=== PATIENT | male | born 1975 | race African-American/Black ===

== ENCOUNTER 2016-10-13 19:56 | Inpatient (IN) ==
[2016-10-13] MEDS ORDERED: PANTOPRAZOLE 40 MG VIAL IV STA (21:08)
[2016-10-13] MEDS ORDERED: SODIUM CHLORIDE 0.9% 1,000 ML IV STA (21:08)
[2016-10-13] MEDS ORDERED: ONDANSETRON 4 MG/2 ML VIAL IV STA (21:08)
[2016-10-13] MEDS ORDERED: HYDROmorphone 2 MG/1 ML VIAL IV STA ×2 (21:08→23:31)
[2016-10-13] MEDS ORDERED: ALUM/MAG/SIMETH/LIDO VISC 1:1 30 ML BOTTLE PO STA (21:08)
[2016-10-13] MEDS ORDERED: hydrALAZINE 20 MG/1 ML VIAL IV STA (21:10)
[2016-10-13 21:27] LABS: Basophils % 0.3 % (0.0-0.8); Eosinophils % 0.1 % (0.00-10.9); Hematocrit 39.1 VOL% (42.0-52.0); Hemoglobin 14.6 GM/DL (14.0-18.0); Immature Granulocytes % 0.2 %; Immature Granulocytes Absolute 0.02 #; Lymphocytes # 1.5 10*3/uL (1.4-4.0); Lymphocytes % 17.3 % (21.2-54.2); Mean Corpuscular HGB Conc 37.3 GM/DL (32-36); Mean Corpuscular Hemoglobin 38 PG (27-34); Mean Corpuscular Volume 101.6 FL (87-102); Monocytes # 0.6 10*3/uL (0.11-0.8); Neutrophils # 6.7 10*3/uL (1.4-7.4); Neutrophils % 75.1 % (38.7-73.9); Platelet Count 233 T/CUMM (130-400); Red Blood Count 3.85 MC/CUMM (3.8-5.5); White Blood Count 8.9 T/CUMM (4-12)
[2016-10-13] MEDS ORDERED: ONDANSETRON 4 MG/2 ML VIAL ONE (21:28)
[2016-10-13] MEDS ORDERED: ALUM/MAG/SIMETH/LIDO VISC 1:1 30 ML BOTTLE PO ONE (21:28)
[2016-10-13] MEDS ORDERED: hydrALAZINE 20 MG/1 ML VIAL ONE (21:28)
[2016-10-13] MEDS ORDERED: PANTOPRAZOLE 40 MG VIAL IV ONE (21:28)
[2016-10-13] MEDS ORDERED: HYDROmorphone 2 MG/1 ML VIAL ONE (21:28)
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
[2016-10-13 21:59] LABS: Alanine Aminotransferase 28 U/L (16-61); Albumin 4.1 G/DL (3.4-5.0); Alkaline Phosphatase 92 U/L (45-117); Amylase 738 U/L (25-115); Aspartate Amino Transferase 20 U/L (0-37); Blood Urea Nitrogen 8 MG/DL (7-18); Calcium 9.7 MG/DL (8.5-10.1); Glucose 92 MG/DL (74-106); Magnesium 1.7 MG/DL (1.8-2.4); Osmolality,Calculated 274.5 MOS/KG (273-304); Potassium 3.6 MMOL/L (3.5-5.1); Sodium 139 MMOL/L (136-145); Troponin I Only 0.035 NG/ML (0.00-0.045)
[2016-10-13] MEDS ORDERED: MAGNESIUM SULF RIDER 2 GM in PREMIX 1 EACH IV STA (22:13)
[2016-10-13] MEDS ORDERED: MAGNESIUM SULF RIDER 50 ML IV ONE (22:28)
[2016-10-13 22:46] LABS: Apearance,Urine CLEAR (Clear); Bilirubin,Urine Negative (Negative); Blood, Urine Negative (Negative); Glucose,Urine (UA) Negative (Negative); Ketones,Urine Negative (Negative); Nitrite,Urine Negative (Negative); Protein,Urine Negative; RBC,Urine <1 /HPF (0-4); Urine Color Yellow (Yellow); Urine Specific Gravity 1.009 (1.001-1.035); Urine Urobilinogen < 2.0 EU/DL (0.2-1.0); WBC,Urine <1 /HPF (0-6)
[2016-10-13 22:53] LABS: Barbiturates Screen,Urine Negative (Negative); Benzodiazepines Screen,Urine Negative (Negative); Cannabinoid Screen,Urine Negative (Negative); Opiate Screen,Urine Negative (Negative); Phencyclidine Screen,Urine Negative (Negative)
[2016-10-13] MEDS ORDERED: LORazepam 1 MG TABLET PO PRN (23:15)
[2016-10-13] MEDS ORDERED: ONDANSETRON 4 MG/2 ML VIAL IV PRN (23:15)
[2016-10-13] MEDS ORDERED: hydrALAZINE 20 MG/1 ML VIAL IV PRN (23:19)
--- NOTE | 2016-10-13 23:37 | Hospitalist History & Physical ---
Assessment and Plan (1) Acute alcoholic pancreatitis Status: Acute Current Visit: Yes (2) Abdominal pain Status: Acute Current Visit: Yes (3) Alcohol abuse Status: Acute Current Visit: Yes (4) Hypertension Status: Acute Assessment and plan: Our plan for this patient will be admitting him at our service. He will be placed on a monitored bed. N.p.o. except for medications. Start blood pressure medications tonight and have some as needed hydralazine as needed. I will have him IV Dilaudid available for his pain. Repeat labs in the morning. Try Tranxene will be scheduled. Multivitamin folate and thiamine will be provided to the patient also for his alcoholism. Explained the need for him to reduce his alcohol intake and to quit smoking. Tobacco counseling lasted approximately 3 minutes. Current Visit: No History of Present Illness Chief complaint: Abdominal pain History of present illness: Mr. Shaw is a 41 year old male with past medical history significant for hypertension, pancreatitis and alcohol abuse was in his normal state of health till last night. Patient has been cutting down on his alcohol consumption. He only drank a pint and 3 beers yesterday. Soon thereafter he started developing epigastric pain. Patient reports that is severe and radiated to his back. He came to our hospital for further evaluation. Patient had a workup in the emergency room which displayed acute pancreatitis. Home Medications Medication Instructions Recorded Confirmed Type Losartan [Cozaar] 50 mg PO DAILY #30 tablet 12/06/15 02/24/16 Rx Carvedilol 12.5 mg PO BID #60 tablet 07/08/16 Rx Allergies Allergy/AdvReac Type Severity Reaction Status Date / Time No Known Allergies Allergy Verified 07/08/16 07:26 Medical,Surgical,& Family Hx - Medical History Cardio: History of: Hypertension Neurology: History of: Migraine - Surgical History Surgical History: noncontributory (none) Abdominal Surgeries: Patient denies: Abdominal Surgery - Family History Family History: Reports;: Family Hypertension - Social History Smoking Status: Former smoker Frequency of Alcohol Use: Frequently Type of Drug Use: None 12 point system: reviewed and no additional remarkable complaints except as stated Exam - Constitutional Vitals: Period Temp Pulse Resp BP Sys/Curry Pulse Ox Last 24 Hr 98.2 F-98.2 F 97-97 20-20 208-208/133-133 99 - General General appearance: alert, in no apparent distress - Head Head exam: Present: atraumatic, normocephalic, normal inspection - Eye Eye exam: Present: normal appearance, PERRL, EOMI. - ENT ENT exam: Present: normal exam, normal oropharynx, - Neck Neck exam: Present: normal inspection, full ROM, trachea midline. - Chest Chest inspection: Present: normal inspection, symmetric chest wall rise. Absent : tenderness, rash, abscess - Respiratory Respiratory exam: Present: Grossly clear - Cardiovascular Cardiovascular exam: Present: normal rhythm, tachycardia, normal heart sounds. Absent: murmur, rubs, gallop, clicks - Abdominal Exam Abdominal exam: Present: soft, tenderness epigastric no rebound - Extremities Exam Extremities exam: Present: normal inspection, full ROM, normal capillary refill - Neurological Exam Neurological exam: Present: alert, oriented X3, CN II-XII intact. - Psychiatric Psychiatric exam: Present: normal affect, normal mood. - Skin Skin exam: Present: warm, dry, intact, normal color. Results - Labs CBC & BMP: 10/13/16 21:10 10/13/16 21:10
[2016-10-14] MEDS: SODIUM CHLORIDE 0.9% 1,000 ML IV SCH ×3 (01:15→21:16)
[2016-10-14] MEDS: LOSARTAN 50 MG TABLET PO SCH ×2 (02:41→09:13)
[2016-10-14] MEDS: amLODIPine 10 MG TABLET PO SCH ×2 (02:41→09:13)
[2016-10-14] MEDS: HYDROmorphone 2 MG/1 ML VIAL IV PRN ×2 (02:47→09:27)
--- NOTE | 2016-10-14 03:14 | EKG Report ---
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
[2016-10-14 06:19] LABS: Basophils % 0.5 % (0.0-0.8); Eosinophils % 0.5 % (0.00-10.9); Hemoglobin 13.7 GM/DL (14.0-18.0); Immature Granulocytes % 0.6 %; Immature Granulocytes Absolute 0.04 #; Mean Corpuscular HGB Conc 36.1 GM/DL (32-36); Mean Corpuscular Hemoglobin 37 PG (27-34); Mean Platelet Volume 10.4 FL (9.6-12.0); Monocytes # 0.6 10*3/uL (0.11-0.8); Monocytes % 8.8 % (1.7-12.7); Neutrophils # 3.9 10*3/uL (1.4-7.4); Neutrophils % 59.6 % (38.7-73.9); Platelet Count 206 T/CUMM (130-400); Red Blood Count 3.69 MC/CUMM (3.8-5.5); Red Cell Distribution Width 12.3 % (9.3-17.3); White Blood Count 6.6 T/CUMM (4-12)
[2016-10-14 06:44] LABS: Hypochromasia 1+; Platelet Estimate Normal
[2016-10-14 06:45] LABS: Macrocytosis Slight
[2016-10-14 06:50] LABS: Albumin 3.7 G/DL (3.4-5.0); Bilirubin,Total 0.9 MG/DL (0.2-1.0); Calcium 9.6 MG/DL (8.5-10.1); Osmolality,Calculated 275.4 MOS/KG (273-304); Potassium 3.6 MMOL/L (3.5-5.1)
--- NOTE | 2016-10-14 07:17 | CT Report ---
History is abdominal and pelvic pain 100 cc Omni 350 utilized Comparison 12/03/2015 No focal defects seen in the liver, spleen, adrenals, or kidneys except for tiny renal cysts There is diffuse fluid and inflammatory change surrounding the pancreas with more prominent patchy low density in the region of the pancreatic head. No loculated fluid collections seen. Bowel is unopacified No enlarged retroperitoneal nodes seen Pelvis: There is mild diffuse bladder wall thickening. The 2 adjacent to 2 mm calcification seen along the posterior bladder wall the left of midline. Appendix is normal in size. There is sclerosis in the left femoral head Impression: 1. Pancreatitis with more focal patchy in decreased density in the pancreatic head. Follow-up recommended 2. Diffuse nonspecific bladder wall thickening with. 2 small bladder calculi 3. 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 PROCEDURE INTERPRETED AT [facility] DEPARTMENT OF RADIOLOGY Final Report Signed by: Dr. Sherri Botello
--- NOTE | 2016-10-14 07:40 | XRay Report ---
Exam: XR chest 1V portable Indication: Abdominal pain Comparison study: Prior chest radiograph 06/14/2013 Findings: The heart, mediastinum and bony structures are stable from prior. Diffuse mild interstitial prominence and minimal peribronchial thickening is noted suggesting chronic scarring changes. There is no focal consolidation, pneumothorax or pleural effusion identified. Impression: Chronic interstitial changes. No evidence of active disease. PROCEDURE INTERPRETED AT [facility] DEPARTMENT OF RADIOLOGY Final Report Signed by: Mich Rand
--- NOTE | 2016-10-14 07:42 | XRay Report ---
XR abdomen 2V Clinical Information: Abdominal Pain constipation Comparison: Prior abdomen radiograph dated 08/05/2015 Findings: Bowel gas pattern is nonspecific and within normal limits. No abnormally dilated small bowel loops are identified to suggest obstruction. There is no free air identified. Scattered fecal material is noted throughout colon, which is otherwise nondilated. No abnormal calcific densities are identified in the abdomen or pelvis. There is suggestion of enlargement of the right lobe of the liver measuring up to 20 cm. Lung bases appear predominantly clear. There is no acute osseous abnormality. No suspicious osseous lesions are identified. AVN of the left femoral head is noted. Impression: No acute radiographic abnormality in the abdomen. Suggestion of hepatomegaly. A mild-moderate degree of fecal stasis/constipation is suspected. PROCEDURE INTERPRETED AT [facility] DEPARTMENT OF RADIOLOGY Final Report Signed by: Mich Rand
[2016-10-14] MEDS: FOLIC ACID 1 MG TABLET PO SCH (09:13)
[2016-10-14] MEDS: MULTIVITAMIN (CENTRUM) TABLET PO SCH (09:13)
[2016-10-14] MEDS: CLORAZEPATE 7.5 MG TABLET PO SCH ×3 (09:14→21:17)
[2016-10-14] MEDS: ENOXAPARIN 40 MG/0.4 ML SYRINGE SUBCUT SCH (09:14)
[2016-10-14] MEDS: THIAMINE 200 MG/2 ML VIAL IV SCH (09:16)
--- NOTE | 2016-10-14 19:45 | Hospitalist Progress Note ---
Assessment and Plan (1) Acute alcoholic pancreatitis Status: Acute Assessment and plan: He is n.p.o. on IV fluids and pain management Current Visit: Yes (2) Alcohol abuse Status: Acute Assessment and plan: He is well aware of the connection between continued alcohol use and recurrent pancreatitis. She stated that he had an episode of pancreatitis about a year ago. The patient had excess extensive counseling by me on the hospital harmful effects of alcohol in the body with emphasis on quitting. Current Visit: Yes (3) Hypertension Status: Acute Assessment and plan: Controlled on current meds Current Visit: No (4) Nicotine addiction Status: Acute Current Visit: Yes (5) Nicotine dependence Status: Acute Assessment and plan: He was extensively counseled by me over 10 minutes to quit smoking Current Visit: Yes Hospitalist: Subjective Interval history: 41 yo M with Alcholic Pancreatitis Exam - Constitutional Vitals: Period Temp Pulse Resp BP Sys/Curry Pulse Ox Last 24 Hr 97.1 F-98.2 F 68-97 16-20 115-208/67-133 94-100 General appearance: no acute distress - Head Head exam: Present: normal inspection, normocephalic, atraumatic - Eye Eye exam: Present: EOMI Pupils: Present: KHANG - ENT ENT exam: Present: normal exam - Neck Neck exam: Present: normal inspection - Respiratory Respiratory exam: Present: clear to auscultation bilaterally - Cardiovascular Cardiovascular exam: Present: regular rate and rhythm - GI/Abdominal GI/Abdominal exam: Present: tenderness - Extremities Exam Extremities exam: Present: normal inspection, normal capillary refill - Back Exam Back exam: Present: normal inspection - Neurological Exam Neurological exam: Present: alert, oriented X3 - Psychiatric Psychiatric exam: Present: normal affect, normal mood - Skin Skin exam: Present: normal color, warm, dry Results - Labs CBC & BMP: 10/14/16 05:33 10/14/16 05:33 Quality Measures - Stroke Symptom Onset Unknown: No
[2016-10-15] MEDS: SODIUM CHLORIDE 0.9% 1,000 ML IV SCH ×2 (06:23→15:48)
[2016-10-15] MEDS: LOSARTAN 50 MG TABLET PO SCH (10:07)
[2016-10-15] MEDS: CLORAZEPATE 7.5 MG TABLET PO SCH ×3 (10:08→21:13)
[2016-10-15] MEDS: THIAMINE 200 MG/2 ML VIAL IV SCH (10:08)
[2016-10-15] MEDS: FOLIC ACID 1 MG TABLET PO SCH (10:08)
[2016-10-15] MEDS: MULTIVITAMIN (CENTRUM) TABLET PO SCH (10:08)
[2016-10-15] MEDS: amLODIPine 10 MG TABLET PO SCH (10:08)
[2016-10-15] MEDS: ENOXAPARIN 40 MG/0.4 ML SYRINGE SUBCUT SCH (10:14)
[2016-10-15] MEDS: buPROPion SR 150 MG TABLET PO SCH (12:15)
--- NOTE | 2016-10-15 20:04 | Hospitalist Progress Note ---
Assessment and Plan (1) Acute alcoholic pancreatitis Status: Acute Assessment and plan: He is n.p.o. on IV fluids and pain management Current Visit: Yes (2) Alcohol abuse Status: Acute Assessment and plan: He is well aware of the connection between continued alcohol use and recurrent pancreatitis. She stated that he had an episode of pancreatitis about a year ago. The patient had excess extensive counseling by me on the hospital harmful effects of alcohol in the body with emphasis on quitting. Current Visit: Yes (3) Hypertension Status: Acute Assessment and plan: Controlled on current meds Current Visit: No (4) Nicotine addiction Status: Acute Current Visit: Yes (5) Nicotine dependence Status: Acute Assessment and plan: He was extensively counseled by me over 10 minutes to quit smoking Current Visit: Yes Hospitalist: Subjective Interval history: 41 yo M with Alcholic Pancreatitis, abdominal pain is better today Exam - Constitutional Vitals: Period Temp Pulse Resp BP Sys/Curry Pulse Ox Last 24 Hr 97.4 F-97.8 F 78-103 16-22 129-150/86-101 95-100 Exam: General: [No Acute Distress] HEENT: [Normocephalic, atraumatic, Extra ocular movements intact] Neck: [Supple, No JVD] Chest: [Clear to auscultation B/L] CV: [S1 + S2 audible without murmur, gallop or rub] Abd: [soft, NT, Non-distended, BS +] Ext: [No edema] Skin: [No purpura, bruising or rash] Rheumatologic: [No Joint deformities] Neurologic: [Strengtg 5/5 all extremities, no gross sensory deficits] Results - Labs CBC & BMP: 10/14/16 05:33 10/14/16 05:33 - Impressions Assessment and Plan (1) Acute alcoholic pancreatitis Status: Acute Assessment and plan: He is n.p.o. on IV fluids and pain management Current Visit: Yes (2) Alcohol abuse Status: Acute Assessment and plan: He is well aware of the connection between continued alcohol use and recurrent pancreatitis. She stated that he had an episode of pancreatitis about a year ago. The patient had excess extensive counseling by me on the hospital harmful effects of alcohol in the body with emphasis on quitting. Current Visit: Yes (3) Hypertension Status: Acute Assessment and plan: Controlled on current meds Current Visit: No (4) Nicotine addiction Status: Acute Current Visit: Yes (5) Nicotine dependence Status: Acute Assessment and plan: He was extensively counseled by me over 10 minutes to quit smoking Current Visit: Yes Quality Measures - Stroke Symptom Onset Unknown: No
[2016-10-16] MEDS: SODIUM CHLORIDE 0.9% 1,000 ML IV SCH ×2 (00:49→09:01)
[2016-10-16] MEDS: ENOXAPARIN 40 MG/0.4 ML SYRINGE SUBCUT SCH (08:48)
[2016-10-16] MEDS: THIAMINE 200 MG/2 ML VIAL IV SCH (08:48)
[2016-10-16] MEDS: CLORAZEPATE 7.5 MG TABLET PO SCH ×2 (08:49→16:17)
[2016-10-16] MEDS: buPROPion SR 150 MG TABLET PO SCH (08:49)
[2016-10-16] MEDS: LOSARTAN 50 MG TABLET PO SCH (08:49)
[2016-10-16] MEDS: FOLIC ACID 1 MG TABLET PO SCH (08:49)
[2016-10-16] MEDS: amLODIPine 10 MG TABLET PO SCH (08:49)
[2016-10-16] MEDS: MULTIVITAMIN (CENTRUM) TABLET PO SCH (08:49)
[2016-10-16 16:03] VITALS: BP 112/78
--- NOTE | 2016-10-16 16:10 | Discharge Summary ---
Hospital Course - Hospital Course Hospital Course: 1 year old male with past medical history significant for hypertension, pancreatitis and alcohol abuse was admitted with abdominal pain due to acute alcoholic pancreatitis. Patient has been cutting down on his alcohol consumption. Patient had a workup in the emergency room which showed elevated lipase compatible with acute pancreatitis. Patient was admitted to the hospital initially made n.p.o. his abdominal pain significantly improved and he was started on clear liquid diet which he tolerated quite well the diet has been advanced to regular was given extensive counseling to quit smoking and has agreed to try Wellbutrin. He was also given extensive counseling to quit drinking. He is not feeling much better and is being discharged home in an improved and stable condition - Time spent with patient Time with patient DS: Less than 30 minutes Diagnosis - Discharge Diagnosis (1) Acute alcoholic pancreatitis Status: Resolved (2) Alcohol abuse Status: Chronic (3) Hypertension Status: Chronic (4) Nicotine addiction Status: Chronic (5) Nicotine dependence Status: Chronic Discharge Plan - Discharge Data Discharge Diet: regular diet Activity: resume usual activities as tolerated Hygiene: no restrictions, may shower Weight Bearing at Discharge: full weight bearing Driving: no restrictions Contact your physician if you experience:: Nausea/Vomiting, pain uncontrolled by pain medications - Discharge Medications New Multivitamin (Centrum) [Centrum Tab] 1 tablet PO DAILY tablet HYDROcodone/ACETAMIN 5-325 [[place] 5-325] 1 tablet PO Q4H PRN #14 tablet PRN Reason: Pain Moderate (4-7) Continue Losartan [Cozaar] 50 mg PO DAILY #30 tablet Carvedilol 12.5 mg PO BID #60 tablet - Follow Up or Referral - Forms/Instructions Exam - Constitutional Vitals: Period Temp Pulse Resp BP Sys/Curry Pulse Ox Last 24 Hr 97.0 F-98.5 F 74-94 18-22 112-152/78-98 96-100 Exam: General: [No Acute Distress] HEENT: [Normocephalic, atraumatic, Extra ocular movements intact] Neck: [Supple, No JVD] Chest: [Clear to auscultation B/L] CV: [S1 + S2 audible without murmur, gallop or rub] Abd: [soft, NT, Non-distended, BS +] Ext: [No edema] Skin: [No purpura, bruising or rash] Rheumatologic: [No Joint deformities] Neurologic: [Strengtg 5/5 all extremities, no gross sensory deficits] DS: Provider Date of admission: 10/13/16 23:16 Primary care physician: Nonstaff Physician Attending physician on admission: Mohan Guerra MD Discharging clinician: Tisha Veloz MD
== END 2016-10-16 18:00 | disposition home or self-care (01) | DRG 440 ==
LOC: N.ED 19:56 → N.EDINP 23:46 → SUATTDRO 23:46 → N.2E 10-14 00:02
PROVIDERS: ADMIT Internal Medicine; ATTEND Hospitalist

== ENCOUNTER 2018-06-17 15:34 | Inpatient (IN) ==
[2018-06-17 16:25] LABS: Basophils % 0.1 % (0.0-0.8); Hematocrit 35.4 VOL% (42.0-52.0); Hemoglobin 12.6 GM/DL (14.0-18.0); Immature Granulocytes % 0.6 %; Immature Granulocytes Absolute 0.05 #; Lymphocytes # 1.1 10*3/uL (1.4-4.0); Lymphocytes % 13.1 % (21.2-54.2); Mean Corpuscular HGB Conc 35.6 GM/DL (32-36); Mean Corpuscular Hemoglobin 37 PG (27-34); Mean Corpuscular Volume 104.4 FL (87-102); Mean Platelet Volume 10.1 FL (9.6-12.0); Monocytes # 0.5 10*3/uL (0.11-0.8); Monocytes % 5.9 % (1.7-12.7); Neutrophils % 80.3 % (38.7-73.9); Platelet Count 191 T/CUMM (130-400); Red Blood Count 3.39 MC/CUMM (3.8-5.5); Red Cell Distribution Width 13.2 % (9.3-17.3); White Blood Count 8.7 T/CUMM (4-12)
[2018-06-17 16:45] LABS: Alanine Aminotransferase 21 U/L (16-61); Albumin 3.3 G/DL (3.4-5.0); Alkaline Phosphatase 99 U/L (45-117); Aspartate Amino Transferase 31 U/L (0-37); Bilirubin,Total < 0.39 MG/DL (0.2-1.0); Blood Urea Nitrogen 11 MG/DL (7-18); Calcium 8.8 MG/DL (8.5-10.1); Glucose 127 MG/DL (74-106); Osmolality,Calculated 270.1 MOS/KG (273-304); Sodium 135 MMOL/L (136-145); Total Protein 7.5 G/DL (6.4-8.3)
[2018-06-17] MEDS ORDERED: ONDANSETRON 4 MG/2 ML VIAL IV STA (17:24)
[2018-06-17] MEDS ORDERED: HYDROmorphone 2 MG/1 ML VIAL IV STA (17:24)
[2018-06-17] MEDS ORDERED: PANTOPRAZOLE 40 MG VIAL IV STA (17:24)
[2018-06-17] MEDS ORDERED: THIAMINE INJ 100 MG, FOLIC ACID INJ 1 MG, MAGNESIUM SULF INJ 2 GM, MULTIVITAMIN INJ 10 ... IV ONE (17:24)
[2018-06-17 17:43] LABS: Amylase 626 U/L (25-115)
[2018-06-17] MEDS ORDERED: ONDANSETRON 4 MG/2 ML VIAL IV PRN (18:32)
[2018-06-17] MEDS ORDERED: NICOTINE 21 MG/24 HR PATCH TRANSDERM PRN (18:34)
[2018-06-17] MEDS ORDERED: LORazepam 2 MG/1 ML VIAL IV PRN (18:35)
[2018-06-17] MEDS ORDERED: LABETALOL 20 MG/4 ML SYRINGE IV PRN (18:37)
[2018-06-17] MEDS ORDERED: MAGNESIUM SULF RIDER 4 GM in PREMIX 1 EACH IV PRN (18:45)
[2018-06-17] MEDS ORDERED: MAGNESIUM SULF RIDER 2 GM in PREMIX 1 EACH IV PRN (18:45)
[2018-06-17 20:06] LABS: Apearance,Urine CLEAR (Clear); Bilirubin,Urine Negative (Negative); Blood, Urine Negative (Negative); Glucose,Urine (UA) Negative (Negative); Hyaline Casts,Urine 1 /LPF (0-3); Ketones,Urine 20 mg/dL (Negative); Mucus,Urine Occasional /LPF (Occasional); Nitrite,Urine Negative (Negative); Protein,Urine Negative; RBC,Urine 7 /HPF (0-4); Urine Color Yellow (Yellow); Urine Specific Gravity 1.053 (1.001-1.035); Urine Urobilinogen < 2.0 EU/DL (0.2-1.0); WBC,Urine <1 /HPF (0-6)
[2018-06-17] MEDS ORDERED: cloNIDine 0.3 MG/24 HR PATCH TRANSDERM SCH (21:00)
[2018-06-17] MEDS: SODIUM CHLORIDE 0.9% 1,000 ML IV SCH (21:36)
[2018-06-17] MEDS: CARVEDILOL 12.5 MG TABLET PO SCH (21:37)
[2018-06-17] MEDS: ENOXAPARIN 40 MG/0.4 ML SYRINGE SUBCUT SCH (21:37)
[2018-06-17] MEDS: MORPHINE 4 MG/1 ML VIAL IV PRN (21:37)
[2018-06-17] MEDS: LORazepam 2 MG/1 ML VIAL IV SCH (23:41)
[2018-06-18] MEDS: SODIUM CHLORIDE 0.9% 1,000 ML IV SCH ×4 (02:45→20:06)
[2018-06-18 05:31] LABS: Basophils % 0.2 % (0.0-0.8); Eosinophils % 0.2 % (0.00-10.9); Hematocrit 33.7 VOL% (42.0-52.0); Hemoglobin 11.6 GM/DL (14.0-18.0); Immature Granulocytes % 0.3 %; Immature Granulocytes Absolute 0.02 #; Mean Corpuscular HGB Conc 34.4 GM/DL (32-36); Mean Corpuscular Hemoglobin 37 PG (27-34); Mean Corpuscular Volume 107.3 FL (87-102); Mean Platelet Volume 10.2 FL (9.6-12.0); Monocytes # 0.4 10*3/uL (0.11-0.8); Monocytes % 6.6 % (1.7-12.7); Neutrophils # 4.6 10*3/uL (1.4-7.4); Neutrophils % 76.7 % (38.7-73.9); Platelet Count 143 T/CUMM (130-400); Red Blood Count 3.14 MC/CUMM (3.8-5.5); Red Cell Distribution Width 13.2 % (9.3-17.3)
[2018-06-18 05:50] LABS: Albumin 2.8 G/DL (3.4-5.0); Bilirubin,Total 0.9 MG/DL (0.2-1.0); Calcium 8.2 MG/DL (8.5-10.1); Osmolality,Calculated 274.5 MOS/KG (273-304); Potassium 3.5 MMOL/L (3.5-5.1); Total Protein 6.2 G/DL (6.4-8.3)
[2018-06-18] MEDS: LORazepam 2 MG/1 ML VIAL IV SCH ×4 (06:16→23:10)
[2018-06-18] MEDS ORDERED: THIAMINE 200 MG/2 ML VIAL IV SCH (09:00)
[2018-06-18] MEDS: MORPHINE 4 MG/1 ML VIAL IV PRN ×2 (09:46→21:14)
[2018-06-18] MEDS: LOSARTAN 50 MG TABLET PO SCH (09:46)
[2018-06-18] MEDS: CARVEDILOL 12.5 MG TABLET PO SCH ×2 (09:46→21:04)
[2018-06-18] MEDS: ENOXAPARIN 40 MG/0.4 ML SYRINGE SUBCUT SCH (21:04)
[2018-06-19] MEDS: SODIUM CHLORIDE 0.9% 1,000 ML IV SCH ×4 (02:26→22:30)
[2018-06-19] MEDS: LORazepam 2 MG/1 ML VIAL IV SCH (06:00)
[2018-06-19] MEDS: CARVEDILOL 12.5 MG TABLET PO SCH ×2 (08:41→22:31)
[2018-06-19] MEDS: LOSARTAN 50 MG TABLET PO SCH (08:41)
[2018-06-19] MEDS: MULTIVITAMIN (BEROCCA) TABLET PO SCH (08:46)
[2018-06-19] MEDS: CLORAZEPATE 7.5 MG TABLET PO SCH ×3 (08:49→22:31)
[2018-06-19] MEDS: ENOXAPARIN 40 MG/0.4 ML SYRINGE SUBCUT SCH (22:31)
[2018-06-20] MEDS: SODIUM CHLORIDE 0.9% 1,000 ML IV SCH ×2 (04:08→07:53)
[2018-06-20 05:52] LABS: Basophils % 0.2 % (0.0-0.8); Eosinophils % 0.6 % (0.00-10.9); Hematocrit 26.6 VOL% (42.0-52.0); Immature Granulocytes % 0.4 %; Immature Granulocytes Absolute 0.02 #; Lymphocytes # 1.6 10*3/uL (1.4-4.0); Lymphocytes % 30.8 % (21.2-54.2); Mean Corpuscular HGB Conc 34.2 GM/DL (32-36); Mean Corpuscular Hemoglobin 37 PG (27-34); Mean Platelet Volume 10.5 FL (9.6-12.0); Monocytes # 0.4 10*3/uL (0.11-0.8); Monocytes % 7.2 % (1.7-12.7); Neutrophils # 3.2 10*3/uL (1.4-7.4); Neutrophils % 60.8 % (38.7-73.9); Platelet Count 137 T/CUMM (130-400); Red Cell Distribution Width 13.6 % (9.3-17.3); White Blood Count 5.3 T/CUMM (4-12)
[2018-06-20 06:01] LABS: Calcium 7.9 MG/DL (8.5-10.1); Osmolality,Calculated 279.1 MOS/KG (273-304); Potassium 3.5 MMOL/L (3.5-5.1)
[2018-06-20 06:06] LABS: Hemoglobin 9.1 GM/DL (14.0-18.0); Red Blood Count 2.44 MC/CUMM (3.8-5.5)
[2018-06-20] MEDS: MULTIVITAMIN (BEROCCA) TABLET PO SCH (09:28)
[2018-06-20] MEDS: CARVEDILOL 12.5 MG TABLET PO SCH (09:28)
[2018-06-20] MEDS: LOSARTAN 50 MG TABLET PO SCH (09:28)
[2018-06-20] MEDS: CLORAZEPATE 7.5 MG TABLET PO SCH (09:28)
[2018-06-20 11:51] VITALS: BP 126/79
== END 2018-06-20 11:36 | disposition home or self-care (01) | DRG 440 ==
LOC: N.ED 15:34 → N.EDINP 18:32 → SUATTDRO 18:32 → N.5E 19:29
PROVIDERS: ADMIT Hospitalist; ATTEND Hospitalist

== ENCOUNTER 2022-03-11 12:19 | Inpatient (IN) ==
[2022-03-11 13:10] LABS: Basophils % 0.2 % (0.0-0.8); Hematocrit 33.2 VOL% (42.0-52.0); Hemoglobin 11.8 GM/DL (14.0-18.0); Immature Granulocytes % 0.4 %; Immature Granulocytes Absolute 0.02 #; Lymphocytes # 0.9 10*3/uL (1.4-4.0); Lymphocytes % 15.8 % (21.2-54.2); Mean Corpuscular HGB Conc 35.5 GM/DL (32-36); Mean Corpuscular Volume 109.6 FL (87-102); Mean Platelet Volume 9.8 FL (9.6-12.0); Monocytes # 0.5 10*3/uL (0.11-0.8); Monocytes % 8.6 % (1.7-12.7); NRBC # 0.03 10*3/uL; Platelet Count 117 T/CUMM (130-400); Red Blood Count 3.03 MC/CUMM (3.8-5.5); Red Cell Distribution Width 13.8 % (9.3-17.3); White Blood Count 5.4 T/CUMM (4-12)
[2022-03-11] MEDS ORDERED: PANTOPRAZOLE 40 MG VIAL IV STA (13:21)
[2022-03-11] MEDS ORDERED: HYDROmorphone 1 MG/1 ML SYRINGE IV STA ×2 (13:21→15:30)
[2022-03-11] MEDS ORDERED: SODIUM CHLORIDE 0.9% 1,000 ML IV STA ×2 (13:21→14:24)
[2022-03-11] MEDS ORDERED: ONDANSETRON 4 MG/2 ML VIAL IV STA ×2 (13:21→15:30)
[2022-03-11 13:31] LABS: Bilirubin,Total 2.1 MG/DL (0.20-1.00); Calcium 8.7 MG/DL (8.5-10.1); Osmolality,Calculated 272.7 MOS/KG (273-304); Potassium 3.1 MMOL/L (3.5-5.1); Total Protein 7.9 G/DL (6.4-8.2)
[2022-03-11 13:50] LABS: Bacteria,Urine Occasional /HPF (Few); RBC,Urine 1 /HPF (0-4); Squamous Epithelial Cell,Urine Occasional /HPF (0-10)
[2022-03-11 13:51] LABS: Bilirubin,Urine Negative (Negative); Blood, Urine Moderate mg/dL (Negative); Glucose,Urine (UA) Negative (Negative); Ketones,Urine 80 mg/dL (Negative); Nitrite,Urine Negative (Negative); Protein,Urine Negative (Negative); Urine Appearance Clear (Clear); Urine Color Yellow (Yellow); Urine Urobilinogen 0.2 eU/dL (<2.0)
[2022-03-11] MEDS: METOPROLOL TARTRATE 5 MG/5 ML VIAL IV SCH ×3 (14:00→14:50)
[2022-03-11] MEDS ORDERED: hydrALAZINE 20 MG/1 ML VIAL ONE (15:00)
[2022-03-11] MEDS ORDERED: hydrALAZINE 20 MG/1 ML VIAL IV STA (15:00)
[2022-03-11] MEDS ORDERED: hydrALAZINE 20 MG/1 ML VIAL IV PRN (16:53)
[2022-03-11] MEDS ORDERED: ONDANSETRON 4 MG/2 ML VIAL IV PRN (16:53)
[2022-03-11] MEDS ORDERED: NICOTINE 21 MG/24 HR PATCH TRANSDERM PRN (16:53)
[2022-03-11] MEDS ORDERED: ACETAMINOPHEN 325 MG TABLET PO PRN (16:53)
[2022-03-11] MEDS: MORPHINE 2 MG/1 ML SYRINGE IV PRN (18:41)
[2022-03-11] MEDS: THIAMINE INJ 100 MG, FOLIC ACID INJ 1 MG, MULTIVITAMIN INJ 10 ML in SODIUM CHLORIDE 0.9... IV SCH (18:42)
[2022-03-11] MEDS: chlordiazePOXIDE 25 MG CAPSULE PO SCH (18:43)
[2022-03-11 18:51] LABS: Barbiturates Screen,Urine Negative (Negative); Benzodiazepines Screen,Urine Negative (Negative); Cannabinoid Screen,Urine Negative (Negative); Opiate Screen,Urine Negative (Negative); Phencyclidine Screen,Urine Negative (Negative)
[2022-03-11] MEDS: SODIUM CHLORIDE 0.9% 1,000 ML IV SCH (18:51)
[2022-03-11] MEDS: MEROPENEM 500 MG in SODIUM CHLORIDE 0.9% 100 ML IV SCH (18:52)
[2022-03-11] MEDS ORDERED: ENOXAPARIN 40 MG/0.4 ML SYRINGE SUBCUT SCH (21:00)
[2022-03-12] MEDS: chlordiazePOXIDE 25 MG CAPSULE PO SCH ×3 (00:04→17:22)
[2022-03-12] MEDS: MORPHINE 2 MG/1 ML SYRINGE IV PRN ×2 (00:04→11:31)
[2022-03-12] MEDS: MEROPENEM 500 MG in SODIUM CHLORIDE 0.9% 100 ML IV SCH ×3 (01:10→20:43)
[2022-03-12] MEDS: SODIUM CHLORIDE 0.9% 1,000 ML IV SCH ×3 (04:48→16:58)
[2022-03-12 05:22] LABS: Basophils % 0.2 % (0.0-0.8); Eosinophils % 0.2 % (0.00-10.9); Hematocrit 34.1 VOL% (42.0-52.0); Immature Granulocytes % 0.6 %; Immature Granulocytes Absolute 0.03 #; Lymphocytes # 0.8 10*3/uL (1.4-4.0); Lymphocytes % 15.1 % (21.2-54.2); Mean Corpuscular HGB Conc 35.2 GM/DL (32-36); Mean Corpuscular Volume 110.7 FL (87-102); Mean Platelet Volume 10.4 FL (9.6-12.0); Monocytes # 0.5 10*3/uL (0.11-0.8); Monocytes % 9.3 % (1.7-12.7); NRBC # 0.09 10*3/uL; Neutrophils % 74.6 % (38.7-73.9); Platelet Count 103 T/CUMM (130-400); Red Blood Count 3.08 MC/CUMM (3.8-5.5); Red Cell Distribution Width 13.4 % (9.3-17.3)
[2022-03-12 05:44] LABS: Hypochromia Slight; Macrocytosis Slight; Platelet Estimate Decreased
[2022-03-12 05:51] LABS: Albumin 3.1 G/DL (3.4-5.0); Bilirubin,Total 1.6 MG/DL (0.20-1.00); Calcium 7.6 MG/DL (8.5-10.1); Osmolality,Calculated 273.5 MOS/KG (273-304); Potassium 2.9 MMOL/L (3.5-5.1); Total Protein 6.8 G/DL (6.4-8.2)
[2022-03-12 05:57] LABS: Risk Ratio 1.88; Thyroid Stimulating Hormone 3.86 uIU/ml (0.358-3.74); VLDL Cholesterol 33.8 MG/DL
[2022-03-12] MEDS ORDERED: MAGNESIUM SULF RIDER 4 GM/100 ML PREMIX IV ONE (08:30)
[2022-03-12] MEDS: PANTOPRAZOLE 40 MG VIAL IV SCH (09:02)
[2022-03-12] MEDS: POTASSIUM CHLORIDE RIDER 10 MEQ/100 ML PREMIX IV PRN ×3 (09:06→14:41)
[2022-03-12 09:56] LABS: Folate > 24.00 NG/ML (5.38-24.0); Vitamin B12 982 PG/ML (211-911)
[2022-03-12 10:09] LABS: Ferritin 873.5 ng/mL (26-388)
[2022-03-12 10:15] LABS: Free T4 (Free Thyroxine) 1.2 NG/DL (0.76-1.46)
[2022-03-12 10:58] LABS: CKMB % 0.19 %
[2022-03-12] MEDS: METOPROLOL TARTRATE 5 MG/5 ML VIAL IV SCH ×2 (11:29→17:53)
[2022-03-12] MEDS: THIAMINE INJ 100 MG, FOLIC ACID INJ 1 MG, MULTIVITAMIN INJ 10 ML in SODIUM CHLORIDE 0.9... IV SCH (17:22)
[2022-03-13] MEDS: METOPROLOL TARTRATE 5 MG/5 ML VIAL IV SCH ×2 (00:10→06:11)
[2022-03-13] MEDS: chlordiazePOXIDE 25 MG CAPSULE PO SCH ×2 (00:53→09:12)
[2022-03-13] MEDS: SODIUM CHLORIDE 0.9% 1,000 ML IV SCH ×2 (03:34→09:37)
[2022-03-13] MEDS: MEROPENEM 500 MG in SODIUM CHLORIDE 0.9% 100 ML IV SCH (04:26)
[2022-03-13 05:31] LABS: Eosinophils % 0.3 % (0.00-10.9); Hematocrit 27.1 VOL% (42.0-52.0); Hemoglobin 9.3 GM/DL (14.0-18.0); Immature Granulocytes % 0.3 %; Immature Granulocytes Absolute 0.01 #; Lymphocytes # 0.9 10*3/uL (1.4-4.0); Lymphocytes % 31.3 % (21.2-54.2); Mean Corpuscular HGB Conc 34.3 GM/DL (32-36); Mean Platelet Volume 11.4 FL (9.6-12.0); Monocytes # 0.3 10*3/uL (0.11-0.8); Monocytes % 10.7 % (1.7-12.7); NRBC # 0.06 10*3/uL; Neutrophils % 57.4 % (38.7-73.9); Platelet Count 64 T/CUMM (130-400); Red Blood Count 2.42 MC/CUMM (3.8-5.5); Red Cell Distribution Width 13.6 % (9.3-17.3); White Blood Count 2.9 T/CUMM (4-12)
[2022-03-13 06:00] LABS: Albumin 2.6 G/DL (3.4-5.0); Bilirubin,Total 1.5 MG/DL (0.20-1.00); Calcium 7.8 MG/DL (8.5-10.1); Osmolality,Calculated 276.3 MOS/KG (273-304); Total Protein 5.7 G/DL (6.4-8.2)
[2022-03-13 06:05] LABS: Potassium 2.4 MMOL/L (3.5-5.1)
[2022-03-13 06:30] LABS: Hypochromia Slight; Macrocytosis Slight; Platelet Estimate Decreased
[2022-03-13] MEDS ORDERED: chlordiazePOXIDE 25 MG CAPSULE PO PRN (09:00)
[2022-03-13] MEDS ORDERED: CHOLECALCIFEROL 5,000 UNIT TABLET PO SCH (09:00)
[2022-03-13] MEDS ORDERED: MAGNESIUM SULF RIDER 2 GM/50 ML PREMIX IV ONE ×2 (09:30→13:41)
[2022-03-13] MEDS ORDERED: METOPROLOL TARTRATE 25 MG TABLET PO SCH (09:30)
[2022-03-13] MEDS ORDERED: POTASSIUM CHLORIDE 20 MEQ TABLET PO ONE ×3 (09:30→12:50)
[2022-03-13] MEDS ORDERED: ASPIRIN EC 81 MG TABLET PO SCH (09:30)
[2022-03-13] MEDS: PANTOPRAZOLE 40 MG VIAL IV SCH (09:36)
[2022-03-13 11:51] LABS: Calcium 8.2 MG/DL (8.5-10.1); Osmolality,Calculated 278.1 MOS/KG (273-304); Potassium 2.9 MMOL/L (3.5-5.1)
[2022-03-13 15:30] VITALS: BP 118/81
[2022-03-13 17:22] LABS: Calcium 8.5 MG/DL (8.5-10.1); Osmolality,Calculated 281.1 MOS/KG (273-304); Potassium 3.7 MMOL/L (3.5-5.1)
== END 2022-03-13 17:38 | disposition home or self-care (01) | DRG 439 ==
LOC: N.ED 12:19 → N.EDINP 16:53 → N.3E 19:46
PROVIDERS: ADMIT Internal Medicine; ATTEND Internal Medicine